=== PATIENT | male | born 1985 | race Caucasian/White ===

== ENCOUNTER 2020-12-05 21:04 | Emergency (ER) | payer MEDICAID, OTHER ==
[~2020-12-05] VITALS: Ht 180.3 cm; Wt 117.9 kg
[2020-12-05] MEDS ORDERED: IBUPROFEN 800 MG TAB PO ONE ×2 (23:15→23:45)
[2020-12-05 23:37] VITALS: BP 113/68
== END 2020-12-05 23:42 | disposition home or self-care (01) ==
LOC: EDBD 21:04 → ER 21:07
DX: S16.1XXA Strain of muscle, fascia and tendon at neck level, initial encounter (principal); S46.912A Strain of unspecified muscle, fascia and tendon at shoulder and upper arm level, left arm, initial encounter; R51.9 Headache, unspecified; J45.909 Unspecified asthma, uncomplicated; V49.9XXA Car occupant (driver) (passenger) injured in unspecified traffic accident, initial encounter; Y93.89 Activity, other specified; Y92.89 Other specified places as the place of occurrence of the external cause; Y99.8 Other external cause status
CPT/HCPCS: 70450; 72125; 73030